=== PATIENT | female | born 1985 | race Caucasian/White ===

== ENCOUNTER → 2018-06-09 16:04 | Outpatient (CLI) | payer OTHER, MEDICAID, SELFPAY ==
--- NOTE | 2018-06-09 16:08 | DI.US.S_ITS ---
PROCEDURE: US THYROID INDICATIONS: HYPOTHYROIDISM TECHNIQUE: Real-time scanning was performed of the thyroid gland, with image documentation. COMPARISON: None. FINDINGS: Right: Thyroid lobe measures 3.9 x 1.1 x 1.3 cm, and is homogeneous in echotexture. Left: Thyroid lobe measures 3.6 x 1.2 x 1.0 cm, and is homogenous in echotexture. Isthmus: 2.0 mm thick. IMPRESSION: Normal thyroid. Dictated by: Giorgi OSMAN Interpreted: Niki York MD on 06/09/2018 at 17:11 Approved by: Niki York M.D. on 06/09/2018 at 18:04
== END ==
PROVIDERS: Visit Provider Internal Medicine
DX: E03.9 Hypothyroidism, unspecified (principal)
CPT/HCPCS: 76536

== ENCOUNTER 2023-03-14 14:32 | Emergency (ER) | payer OTHER, SELFPAY ==
[2023-03-14 14:54] VITALS: BP 125/82; PULSE 100; RESP 20; TEMP 36.9; O2SAT 95; BMI 37.0
--- NOTE | 2023-03-14 15:00 | DI.RAD.S_ITS ---
PROCEDURE: XR FINGER LT MIN 2V INDICATIONS: laceration TECHNIQUE: AP hand, 2 views of the 2nd finger(s) acquired. COMPARISON: None. FINDINGS: Bones: No fractures or dislocations. No suspicious bony lesions. Soft tissues: No suspicious soft tissue calcifications. Distal aspect laceration of 2nd finger. No radiopaque foreign body or soft tissue gas. IMPRESSION: Soft tissue laceration without underlying acute bony abnormality. No radiopaque foreign body or soft tissue gas. Dictated by: Yayo Sen M.D. on 03/14/2023 at 15:12 Approved by: Yayo Sen M.D. on 03/14/2023 at 15:14
[2023-03-14] MEDS: TET,DIPH,PERTUSS(ACELL),VAC/PF 0.5 ML SYRINGE IM (17:58)
[2023-03-14 19:59] VITALS: BP 126/72; PULSE 70; RESP 18; O2SAT 98
--- NOTE | 2023-03-14 20:03 | ED.WOUNDLAC ---
HPI - Wound/Laceration <Alea Grullon PA-C - Last Filed: 03/14/23 20:11> General Chief Complaint: Wound/Laceration Stated Complaint: poss amputation of LT index finger Time Seen by Provider: 03/14/23 17:06 Source: patient Mode of arrival: Ambulatory History of Present Illness HPI narrative: Patient is a 37-year-old female presenting with her partner for evaluation of her left finger laceration. She can not remember her last tetanus shot. She notes that the tip of finger feels numb, but she can bend the D IP and PIP and fully extend. She states that she was using upholstery auto trimmer and her finger got caught in the blades.. She says that it the bleeding has calmed down with pressure. X-ray was taken of left finger shows no bony involvement Related Data Home Medications Medication Instructions Recorded Confirmed diphenhydramine HCl 50 mg capsule 50 mg PO Q4H ##0 02/26/17 Previous Rx's Medication Instructions Recorded ondansetron 4 mg disintegrating 4 mg sublingual Q6HP PRN ##8 07/27/16 tablet (Zofran ODT) Allergies Allergy/AdvReac Type Severity Reaction Status Date / Time bupropion [From WELLBUTRIN] Allergy Unknown Verified 03/14/23 14:59 Review of Systems <Alea Grullon PA-C - Last Filed: 03/14/23 20:11> Review of Systems Narrative: per HPI Exam <Alea Grullon PA-C - Last Filed: 03/14/23 20:11> Narrative Exam Narrative: General: Well-developed well-nourished 37-year-old female in no acute distress Extremity: Left index finger has 3 linear lacerations parallel to each other. Fatty tissue present, no tendon visualized, no foreign body noted. Patient is able to bend the DIP and PIP and extend without difficulty. Initial Vital Signs Initial Vital Signs: Vital Signs Temperature 98.5 F 03/14/23 14:54 Pulse Rate 100 H 03/14/23 14:54 Respiratory Rate 20 03/14/23 14:54 Blood Pressure 125/82 03/14/23 14:54 Pulse Oximetry 95 03/14/23 14:54 Oxygen Delivery Method Room Air 03/14/23 14:54 <Shanon Morfin DO - Last Filed: 03/15/23 03:53> Initial Vital Signs Initial Vital Signs: Vital Signs Temperature 98.5 F 03/14/23 14:54 Pulse Rate 100 H 03/14/23 14:54 Respiratory Rate 20 03/14/23 14:54 Blood Pressure 125/82 03/14/23 14:54 Pulse Oximetry 95 03/14/23 14:54 Oxygen Delivery Method Room Air 03/14/23 14:54 Procedures <Alea Grullon PA-C - Last Filed: 03/14/23 20:11> Laceration Repair Laceration 1: Time of procedure: 18:30 Site: hand (Left index finger distal pad) Side (If applicable): left Size (cm): 1 Description: irregular (Three parallel lacerations close together with some overlap) Depth: simple, single layer Local Anesthetic: lidocaine 1% Amount of anesthesia used (mL): 6 Pre-repair: wound explored, irrigated extensively, deep structures intact and cleansed with chlorhexadine Skin layer closed with: nylon (5-0) Skin layer suture size: 5-0 Number of sutures: 7 Technique: simple, interrupted Course <Alea Grullon PA-C - Last Filed: 03/14/23 20:11> Orders Ordered: Discontinued Medications Diphtheria/Tetanus/Acell Pertussis (Tet,Diph,Pertuss(Acell),Vac/Pf 0.5 Ml Syringe) 0.5 ml IM .ONCE ONE Stop: 03/14/23 17:42 Last Admin: 03/14/23 17:58 Dose: 0.5 ml Documented By: JASWANT Lidocaine HCl (Lidocaine 1% (Pf) 5 Ml) 5 ml INJ NOW ONE Stop: 03/14/23 19:36 Last Admin: 03/14/23 20:04 Dose: 5 ml Documented By: HNG Vital Signs Vital signs: Vital Signs - 8 hr 03/14/23 19:59 Pulse Rate 70 Respiratory Rate 18 Blood Pressure 126/72 Pulse Oximetry 98 Oxygen Delivery Method Room Air <Shanon Morfin DO - Last Filed: 03/15/23 03:53> Orders Ordered: Discontinued Medications Diphtheria/Tetanus/Acell Pertussis (Tet,Diph,Pertuss(Acell),Vac/Pf 0.5 Ml Syringe) 0.5 ml IM .ONCE ONE Stop: 03/14/23 17:42 Last Admin: 03/14/23 17:58 Dose: 0.5 ml Documented By: JASWANT Lidocaine HCl (Lidocaine 1% (Pf) 5 Ml) 5 ml INJ NOW ONE Stop: 03/14/23 19:36 Last Admin: 03/14/23 20:04 Dose: 5 ml Documented By: CLARA Vital Signs Vital signs: Vital Signs - 8 hr 03/14/23 19:59 Pulse Rate 70 Respiratory Rate 18 Blood Pressure 126/72 Pulse Oximetry 98 Oxygen Delivery Method Room Air MDM - Wound/Laceration <Alea Grullon PA-C - Last Filed: 03/14/23 20:11> Imaging Data Left finger x-ray: Radiologist's Impression: PROCEDURE:? XR FINGER LT MIN 2V ? INDICATIONS:? laceration ? TECHNIQUE:? AP hand, 2 views of the 2nd finger(s) acquired.? ? COMPARISON:? None. ? FINDINGS:? ? Bones:? No fractures or dislocations.? No suspicious bony lesions.? ? Soft tissues:? No suspicious soft tissue calcifications.? Distal aspect laceration of 2nd finger.? No radiopaque foreign body or soft tissue gas.? ? IMPRESSION:? Soft tissue laceration without underlying acute bony abnormality.? No radiopaque foreign body or soft tissue gas. ? ? Dictated by: Yayo Sen M.D. on 03/14/2023 at 15:12 ? ? Approved by: Yayo Sen M.D. on 03/14/2023 at 15:14 ? [facility] Narrative Medical decision making narrative: Patient is a 37-year-old female presenting for repair after left finger laceration from a hedge cutter. She can not remember her last tetanus shot. She retains motion of her left finger and reports decreased sensation. Imaging reviewed: X-ray shows no bony abnormality or foreign body or soft tissue gas Patient's symptoms improved over duration of stay with above-stated therapies. Findings and discharge diagnosis discussed with patient/family followed by verbalization of understanding Return precautions discussed with patient/family whom verbalize understanding of diagnosis and plan Recommend she wash daily with soap and water and keep left finger from submerging in water. Return in 7-10 days for suture removal. Watch for signs of infection such as swelling of finger, increased pain or evidence of pus and returned for further evaluation if these present. Discharge Plan Departure Patient Disposition: Home Clinical Impression: Laceration Instructions: DI for Laceration Repair Activity Restrictions/Additional Instructions: You were treated today with a tetanus shot and 7 nonabsorbable sutures in your left index finger. Please return in 7-10 days to have sutures removed. We discussed wound care precautions. After the 1st 24 hours, wash with soap and water, then dry, then then cover with Vaseline or bacitracin. Please return for ER evaluation if finger swells, develops pus or shows other signs of infection. Prescriptions: No Action ondansetron [Zofran ODT] 4 MG tablet,disintegrating 4 mg Sublingual Q6HP PRNQty: 8 1RF diphenhydramine HCl 50 MG capsule 50 mg PO Q4H Qty: 0 Referrals: Miscellaneous,Doctor, MD [Primary Care Provider] - Stand Alone Forms: Patient Portal/API <Shanon Morfin DO - Last Filed: 03/15/23 03:53> Cosign ED Attending Dontae Attestation: I was immediately available in the department for consultation. Documentation has been reviewed.
[2023-03-14] MEDS: LIDOCAINE 1% (PF) 5 ML INJ (20:04)
== END 2023-03-14 20:08 | disposition home or self-care (01) ==
PROVIDERS: Emergency Provider Physician Assistant
DX: S61.211A Laceration without foreign body of left index finger without damage to nail, initial encounter (principal); W29.3XXA Contact with powered garden and outdoor hand tools and machinery, initial encounter; Z23 Encounter for immunization
CPT/HCPCS: 12001; 73140; 90471; 99283; 90715